=== PATIENT | male | born 1990 | race Caucasian/White ===

== ENCOUNTER 2019-02-18 21:01 | Emergency (ER) | payer SELFPAY ==
[2019-02-18] MEDS: IBUPROFEN 600 MG TAB PO (22:22)
[2019-02-18] MEDS: LIDOCAINE 2% (MDV) 20 ML INJ INJ (22:22)
== END 2019-02-19 00:23 | disposition home or self-care (01) ==
LOC: FTE 02-19 00:23
DX: S01.511A Laceration without foreign body of lip, initial encounter (principal); W18.40XA Slipping, tripping and stumbling without falling, unspecified, initial encounter; Y92.9 Unspecified place or not applicable
CPT/HCPCS: 12011; 99282-25

== ENCOUNTER 2019-02-21 12:01 | Emergency (ER) | payer SELFPAY ==
[2019-02-21] MEDS: LIDOCAINE 1% (MDV) 20 ML INJ SC (12:48)
[2019-02-21] MEDS: CEFTRIAXONE 1 GM INJ IM (12:48)
== END 2019-02-21 13:17 | disposition home or self-care (01) ==
LOC: FTE 12:01
DX: R60.0 Localized edema (principal)
CPT/HCPCS: 96372; 99284-25

== ENCOUNTER 2019-02-27 18:32 | Emergency (ER) | payer SELFPAY | END 2019-02-28 03:10 | disposition left against medical advice (07) | LOC: FTE 02-28 03:10 | DX: Z53.21 Procedure and treatment not carried out due to patient leaving prior to being seen by health care provider (principal) ==

== ENCOUNTER 2019-02-28 13:53 | Emergency (ER) | payer SELFPAY | END 2019-02-28 15:05 | disposition home or self-care (01) | LOC: FTE 13:53 | DX: Z48.02 Encounter for removal of sutures (principal) | CPT/HCPCS: 99281 ==